=== PATIENT | male | born 1990 | race Hispanic/Latino ===

== ENCOUNTER 2024-10-11 20:11 | Emergency (ER) | payer SELFPAY ==
[~2024-10-11] VITALS: Ht 180.3 cm; Wt 77.1 kg
--- NOTE | 2024-10-11 20:50 | ERN ---
ED Note History of Present Illness Stated Complaint: LEG PAIN/SWELLING Chief Complaint: Lower Extremity Pain/Injury Time Seen by MD: 20:45 Dictation: This is a 34-year-old male who presented to the emergency room with complaints of left leg pain and swelling. This has been going on for weeks to months. And he has been at taking a pill that was given to him-called Musco. He thinks that it was added to his drink. He has consumed alcohol today and also did cocaine this morning. He read the side effects of Musco tingling numbness and various other things and he was concerned and came in for evaluation No history of any trauma fall. Temperature 97.2 pulse 105 respirations 18 blood pressure 129/86 pulse oximetry of 98% on room air Allergies: Coded Allergies: No Known Drug Allergies (Unverified Allergy, Unknown, 10/11/24) Home Meds Active Scripts Dicloxacillin Sodium (Dicloxacillin Sodium) 500 Mg Capsule, 1 CAP PO QID for 10 Days, #40 CAP 0 Refills Prov:WAYNE HERRERA MD 10/11/24 Past Medical History Past Medical History: No Pertinent History Surgical History: None Social History: Drugs, ETOH RN Note Reviewed/Agreed w/PFSH: Yes Review of System Dictation Constitutional: Negative for fever,chills, and weight loss Eyes: Negative for injury, pain,redness, and discharge ENT: Negative for injury,pain or swelling Cardiovascular: Negative for chest pain, palpitations, and edema Respiratory: Negative for shortness of breath, cough, and wheezing, Abdomen/GI: Negative for abdominal pain, nausea, vomiting, diarrhea, and constipation Back: Negative for injury and pain : Negative for injury, bleeding and discharge MS/Extremity: Negative for injury and deformity as described in the history of present illness Skin: Negative for rash, and discoloration Neuro: Negative for headache, weakness, numbness, tingling, and seizure Psych: Negative for suicide ideation, homicidal ideation, and hallucinations Initial Vital Sign VS Vital Signs Date Time Temp Pulse Resp B/P (MAP) Pulse Ox O2 Delivery O2 Flow Rate FiO2 10/11/24 20:12 97.2 105 129/86 98 Room Air 0 10/11/24 21:14 16 21 Physical Exam Dictation General: awake, alert, NAD chronically ill-appearing, thin male with lots of tattoos Head/Face: Normocephalic, atraumatic Eyes: PERRL, EOMI, vision at baseline ENT: oral cavity clear, TMs clear, no signs of infection Neck: Trachea midline, supple, no nuchal rigidity Cardiovascular: RRR, normal S1/S2, No MRGs, no JVD Respiratory: CTAB, no respiratory distress, No rales or wheezes Abdomen: Soft, non-tender, non-distended, normal bowel sounds, no guarding or rebound. Skin: Warm, dry, normal turgor, no rash MS/Extremity: Pulses equal, no cyanosis, neurovascular intact, FROM left lower extremity diffusely swollen compared to the right leg. No abrasions lacerations or evidence of any trauma no obvious joint effusion in the knee or ankle. Neuro: COAx4, GCS 15, strength 5/5, CN 2-12 intact, normal cerebellar exam, normal gait, Psych: Normal behavior, mood, and affect normal Extremities-trace edema without any palpable cords, Homans sign is negative Results (Laboratory/Radiology) Laboratory/Radiology Laboratory Tests Test 10/11/24 22:22 White Blood Count 10.1 K/uL (4.8-10.8) Red Blood Count 4.42 MIL/uL (4.50-6.20) L Hemoglobin 13.3 g/dL (14.0-18.0) L Hematocrit 39.7 % (42-54) L Mean Corpuscular Volume 89.8 fL (79-99) Mean Corpuscular Hemoglobin 30.1 pg (27.0-33.0) Mean Corpuscular Hemoglobin Concent 33.5 g/dL (32.0-36.0) Red Cell Distribution Width 13.7 % (11.0-15.5) Platelet Count 406 K/uL (130-400) H Mean Platelet Volume 9.3 fL (7.5-10.5) Immature Granulocyte % (Auto) 0.5 % (0-1) Neutrophils (%) (Auto) 68.8 % (40.0-77.0) Lymphocytes (%) (Auto) 20.6 % (21.0-51.0) L Monocytes (%) (Auto) 8.4 % (3.0-13.0) Eosinophils (%) (Auto) 1.2 % (0.0-8.0) Basophils (%) (Auto) 0.5 % (0.0-5.0) Neutrophils # (Auto) 6.9 K/uL (1.8-7.7) Lymphocytes # (Auto) 2.1 K/uL (1.0-4.8) Monocytes # (Auto) 0.9 K/uL (0.1-1.0) Eosinophils # (Auto) 0.12 K/uL (0.00-0.70) Basophils # (Auto) 0.05 K/uL (0.00-0.20) Absolute Immature Granulocyte (auto 0.05 K/uL (0-1) Nucleated Red Blood Cells 0.0 % (0.0-0.19) Sodium Level 138 mmol/L (136-145) Potassium Level 2.8 mmol/L (3.5-5.1) *L Chloride Level 103 mmol/L (101-111) Carbon Dioxide Level 30 mmol/L (21-32) Blood Urea Nitrogen 12 mg/dL (7-18) Creatinine 0.9 mg/dL (0.5-1.3) Glomerular Filtration Rate Calc 116 mL/min (>90) Random Glucose 101 mg/dL (70-105) Total Calcium 8.6 mg/dL (8.5-10.1) Labs Reviewed?: Yes ED Course ED Course Orders Procedure Category Date Status Time Us Venous Doppler US 10/11/24 Resulted Unilateral 21:14 Cbc With Differential LAB 10/11/24 Complete 22:01 Basic Metabolic Panel LAB 10/11/24 Complete 22:01 Ketorolac PHA 10/11/24 Complete Tromethamine 15mg/Ml 22:30 Potassium Bicarb/Cit PHA 10/11/24 Complete Ac 25meq (K-Lyte Ta 23:00 Current Medications Medications (Trade) Dose Ordered Sig/Poncho Route PRN Reason Start Time Stop Time Status Last Admin Dose Admin Ketorolac Tromethamine (toRADol) 15 mg ONCE ONCE IM 10/11/24 22:30 10/11/24 23:02 DC 10/11/24 23:06 Potassium Bicarbonate (K-Lyte Tablet Eff 25 Meq Tablet.eff) 50 meq ONCE ONCE PO 10/11/24 23:00 10/11/24 23:02 DC 10/11/24 23:06 Vital Signs Date Time Temp Pulse Resp B/P (MAP) Pulse Ox O2 Delivery O2 Flow Rate FiO2 10/11/24 21:14 98.1 100 16 120/86 98 Room Air* 0 21 10/11/24 20:12 97.2 105 129/86 98 Room Air 0 We will perform diagnostic labs, advanced imaging and administer medications according to the patient's complaint. Once the results are available, will review and personally interpreted the labs to rule out any acute life-threatenin g emergency the trach require immediate intervention and treatment. I will then re-evaluate the patient after treatment and diagnostic exams have return to determine whether the patient requires any further testing, can safely be discharged home or need further admission to hospital for additional treatment and evaluation 10:06 p.m. left leg venous Doppler studies are negative for DVT CBC BNP requested 11:05 p.m. patient received Toradol and CBC BNP 7 resulted which are normal except for potassium of 2.8 I have updated the patient and his mother on all the tests done so far and likely it may just be some contusion, sprain or perhaps cellulitis and I informed her that potassium needs to be repleted and I will be sending prescription for antibiotics to the pharmacy Replete potassium. Both of them verbalized full understanding follow-up with the primary care manpreet daly I have encouraged to eat a banana and also get lab work done with his PCP to follow up on the potassium Medical Decision Making MDM MDM: Differential diagnosis: Musculoskeletal pain, contusion, cellulitis, DVT Rationale: Tests considered and ordered secondary to shared decision making include: Previous outside records reviewed: Old ER visits. Risk of complication and/or morbidity or mortality of patient management: None Medications-Per medication reconciliation Need for hospitalization: Patient does not meet criteria for hospitalization. Need for emergency major/minor surgery: No There are no social concerns with this patient. Prescription drug management Prescriptions will include symptomatic care Patient's prior external medical records from other ER visits were reviewed by me as indicated. Prior testing and results from previous visits were reviewed. Prior tests were taken into account with medical decision making and resource utilization, independent historian/historians were used to obtain complete medical history. I independently interpreted the test that were performed, results were reviewed by me and considered findings on radiology if ordered. Medical management and examination interpretation discussions were had by me with other qualified healthcare professionals as indicated for the patient's care. Problem List Problem List: (1) Left leg cellulitis (2) Polysubstance abuse DX & DISP Disposition: Discharge Departure Impression: Primary Impression: Left leg cellulitis Additional Impression: Polysubstance abuse Condition: Stable Scripts Dicloxacillin Sodium (Dicloxacillin Sodium) 500 Mg Capsule 1 CAP PO QID for 10 Days, #40 CAP 0 Refills Prov: WAYNE HERRERA MD 10/11/24 Additional Instructions: Patient and the caregiver have been informed of all the diagnostic tests and the imaging conducted during the today's visit to the emergency room and has verbalized understanding of the results I have personally reviewed and interpreted all diagnostic exams performed here in the ER today as well as the vital signs documented by the nursing staff. The patient is now being discharged to home and should follow up with the primary care physician or the specialist as directed by the ER staff. Follow-up with primary care provider in 1 to 2 days. Take medications as directed here in the emergency room. Okay to continue home medications unless otherwise discussed during your visit in the emergency room today. Return to your nearest emergency room if symptoms worsen or if there is no improvement. Call 911 if you need immediate assistance. Take Tylenol or Motrin [id number] as needed and if no contraindications are present. Increase oral hydration. A wound culture or urine culture was ordered here in the emergency room department please follow-up with primary care provider and advise them to get repeat ports from our facility. If you had any Zander wrap/splints that were applied here, please do not remove them until you see your primary care or specialty. Referrals: SELF,REFERRAL (PCP) WAYNE HERRERA MD Oct 11, 2024 20:50
--- NOTE | 2024-10-11 21:53 | HMCIMG ---
Exam Type: US VENOUS DOPPLER UNILATERAL Clinical Information: leg pain and swelling Comparison: None Findings: The examination shows normal deep venous system. There is normal compressibility at all levels. There is no intraluminal clot. There is no occlusion. Adequate response is obtained on augmentation. Impression: No evidence of DVT.
[2024-10-11 22:37] LABS: BASOPHILS # (AUTO) 0.05 K/uL (0.00-0.20); BASOPHILS % (AUTO) 0.5 % (0.0-5.0); EOSINOPHILS # (AUTO) 0.12 K/uL (0.00-0.70); EOSINOPHILS % (AUTO) 1.2 % (0.0-8.0); HEMATOCRIT 39.7 % (42-54); IMMATURE GRANULOCYTE ABSOLUTE 0.05 K/uL (0-1); LYMPHOCYTES # (AUTO) 2.1 K/uL (1.0-4.8); LYMPHOCYTES % (AUTO) 20.6 % (21.0-51.0); MEAN CORPUSCULAR HEMOGLOBIN 30.1 pg (27.0-33.0); MEAN CORPUSCULAR HGB CONC 33.5 g/dL (32.0-36.0); MEAN CORPUSCULAR VOLUME 89.8 fL (79-99); MONOCYTES # (AUTO) 0.9 K/uL (0.1-1.0); MONOCYTES % (AUTO) 8.4 % (3.0-13.0); NEUTROPHILS # (AUTO) 6.9 K/uL (1.8-7.7); NEUTROPHILS % (AUTO) 68.8 % (40.0-77.0); PLATELET COUNT (AUTO) 406 K/uL (130-400); RED BLOOD CELL COUNT(AUTO) 4.42 MIL/uL (4.50-6.20); RED CELL DISTRIBUTION WIDTH 13.7 % (11.0-15.5); WHITE BLOOD COUNT (AUTO) 10.1 K/uL (4.8-10.8)
[2024-10-11 22:43] LABS: CREATININE 0.9 mg/dL (0.5-1.3)
[2024-10-11 22:50] LABS: POTASSIUM 2.8 mmol/L (3.5-5.1)
[2024-10-11] MEDS ORDERED: DICL500C PO (23:02)
[2024-10-11] MEDS: PoTASSium BIcarbonate/CIT AC 25 MEQ TABLET.EFF PO ONE (23:06)
[2024-10-11] MEDS: ketOROlac 15MG/ML VIAL (15MG/ML) IM ONE (23:06)
[2024-10-11 23:21] VITALS: BP 120/78; PULSE 90; RESP 16; TEMP 98.3; O2SAT 98
== END 2024-10-11 23:30 | disposition home or self-care (01) ==
LOC: EDH 20:11
DX: L03.116 Cellulitis of left lower limb (principal); F19.10 Other psychoactive substance abuse, uncomplicated
CPT/HCPCS: 99285; 93971; 80048; 85025; 36415; 96372; J1885